=== PATIENT | female | born 1945 | race Caucasian/White ===

== ENCOUNTER 2016-08-25 23:13 | Inpatient (IN) | payer MEDICARE, BC ==
[~2016-08-25] VITALS: Ht 172.7 cm; Wt 84.4 kg
[~2016-08-25 23:13] MED LIST: ASPI-496 PO; CHOL500014 PO; DOXY100C2 PO; DOXY150T PO; EZET1TAB4 PO; FLUO20CA8 PO; FLUT1BLS INH; LOSA100T6 PO
[2016-08-25 23:49] LABS: BLOOD UREA NITROGEN 20 mg/dL (7-18)
[2016-08-26] MEDS ORDERED: ONDANSETRON ODT 4 MG ONE (00:25)
[2016-08-26] MEDS ORDERED: MAALOX/HYOSCYAMINE/LIDOCAINE 45 ML BTL ONE (00:25)
[2016-08-26] MEDS ORDERED: MAALOX/HYOSCYAMINE/LIDOCAINE 45 ML BTL PO ONE (00:30)
[2016-08-26] MEDS ORDERED: ONDANSETRON ODT 4 MG PO ONE (00:30)
[2016-08-26] MEDS ORDERED: ONDANSETRON 2MG/ML, 2ML IVPush PRN (03:00)
[2016-08-26 03:30] VITALS: BP 154/85
[2016-08-26] MEDS ORDERED: DOCUSATE CALCIUM 240 MG CAPSULE PO PRN (06:00)
[2016-08-26] MEDS ORDERED: ACETAMINOPHEN 650 MG/20.3 ML UDC PO PRN (06:00)
[2016-08-26] MEDS: ENOXAPARIN 40 MG/0.4 ML SQ SCH (06:13)
[2016-08-26 06:55] VITALS: BP 172/76
[2016-08-26] MEDS: FLUOXETINE 20 MG CAPSULE PO SCH ×2 (09:04→20:33)
[2016-08-26] MEDS: EZETIMIBE 10 MG TABLET PO SCH (09:04)
[2016-08-26] MEDS: ASPIRIN 325 MG TABLET PO SCH (09:04)
[2016-08-26] MEDS: SIMVASTATIN 20 MG TABLET PO SCH (09:05)
[2016-08-26] MEDS: SODIUM CHLORIDE FLUSH 10ML SYR IVF SCH ×2 (09:06→20:33)
[2016-08-26] MEDS: LOSARTAN 50MG TABLET PO SCH (09:07)
[2016-08-26 12:31] VITALS: BP 177/81
[2016-08-26 20:00] VITALS: BP 159/75
[2016-08-26] MEDS ORDERED: DIPHENHYDRAMINE 50 MG CAPSULE PO ONE (23:30)
[2016-08-27 02:00] VITALS: BP 160/83
[2016-08-27] MEDS: ENOXAPARIN 40 MG/0.4 ML SQ SCH (06:12)
[2016-08-27 06:37] VITALS: BP 172/89
[2016-08-27] MEDS: LOSARTAN 50MG TABLET PO SCH (09:22)
[2016-08-27] MEDS: SODIUM CHLORIDE FLUSH 10ML SYR IVF SCH ×2 (09:22→20:26)
[2016-08-27] MEDS: FLUOXETINE 20 MG CAPSULE PO SCH ×2 (09:22→20:26)
[2016-08-27] MEDS: ASPIRIN 325 MG TABLET PO SCH (09:22)
[2016-08-27] MEDS ORDERED: ASPI325T4 PO (12:23)
[2016-08-27] MEDS ORDERED: EZET1TAB5 PO (12:23)
[2016-08-27 13:05] VITALS: BP 195/99
[2016-08-27] MEDS ORDERED: OMNIPAQUE 350 MG/ML, 100ML BOTTLE ONE (15:03)
[2016-08-27 15:23] VITALS: BP 197/81
[2016-08-27] MEDS ORDERED: hydrALAzine 20 MG/ML, 1ML IV ONE (15:30)
[2016-08-27] MEDS ORDERED: CARV6.252 PO (15:39)
[2016-08-27 16:05] VITALS: BP 148/73
[2016-08-27] MEDS ORDERED: LORazepam 1MG TABLET PO ONE (17:00)
[2016-08-27 20:00] VITALS: BP 154/74
[2016-08-27] MEDS: CARVEDILOL 6.25 MG TABLET PO SCH (20:26)
[2016-08-28 02:00] VITALS: BP 146/83
[2016-08-28] MEDS: ENOXAPARIN 40 MG/0.4 ML SQ SCH (06:24)
[2016-08-28] MEDS: CARVEDILOL 6.25 MG TABLET PO SCH (06:24)
[2016-08-28 06:55] VITALS: BP 144/70
[2016-08-28] MEDS: SODIUM CHLORIDE FLUSH 10ML SYR IVF SCH (08:12)
[2016-08-28] MEDS: ASPIRIN 325 MG TABLET PO SCH (08:12)
[2016-08-28] MEDS: EZETIMIBE 10 MG TABLET PO SCH (08:13)
[2016-08-28] MEDS: LOSARTAN 50MG TABLET PO SCH (08:13)
[2016-08-28] MEDS: FLUOXETINE 20 MG CAPSULE PO SCH (08:13)
[2016-08-28] MEDS: SIMVASTATIN 20 MG TABLET PO SCH (08:13)
[2016-08-28 10:07] VITALS: BP 107/64
== END 2016-08-28 11:11 | disposition home or self-care (01) | DRG 65 ==
LOC: ED 23:29 → EDIP 08-26 02:37 → 4EST 08-26 03:22
PROVIDERS: ADMIT Psychiatry & Neurology Neurology; ATTEND Family Medicine
DX: I63.412 Cerebral infarction due to embolism of left middle cerebral artery (principal); E44.0 Moderate protein-calorie malnutrition; I10 Essential (primary) hypertension; D86.9 Sarcoidosis, unspecified; G89.29 Other chronic pain; E78.5 Hyperlipidemia, unspecified; R29.702 NIHSS score 2; Z66 Do not resuscitate; M54.2 Cervicalgia; G83.21 Monoplegia of upper limb affecting right dominant side; Z79.82 Long term (current) use of aspirin; Z87.01 Personal history of pneumonia (recurrent); Z88.2 Allergy status to sulfonamides; Z83.3 Family history of diabetes mellitus
CPT/HCPCS: 36415; 70450; 70498; 70551; 72125; 72141; 80047; 80048; 80061; 82040; 85025; 85610; 85730; 93005; 93306; 99292; J1650; Q0162; Q9967; 92523-GN; J0360

== ENCOUNTER 2016-10-11 17:19 | Emergency (ER) | payer MEDICARE, BC ==
[~2016-10-11] VITALS: Ht 172.7 cm; Wt 81.0 kg
[~2016-10-11 17:19] MED LIST changes: +ASPI325T17 PO; +CARV6.252 PO; -CHOL500014 PO; +CHOL500045 PO; +EZET1TAB30 PO; +EZET1TAB35 PO; -EZET1TAB4 PO
[2016-10-11] MEDS ORDERED: SODIUM CHLORIDE FLUSH 10ML SYR IVF ONE (18:00)
[2016-10-11 18:11] LABS: HEMATOCRIT 42.7 % (34.6-47.8); HEMOGLOBIN 14.3 g/dL (11.7-16.4); WHITE BLOOD COUNT 8.8 x10^3/uL (3.4-10)
[2016-10-11 18:25] LABS: ASPARTATE AMINO TRANSFERASE 18 U/L (15-37); BLOOD UREA NITROGEN 27 mg/dL (7-18)
[2016-10-11 18:43] LABS: IS PT STATUS REG ER OR PRE ER? YES
[2016-10-11] MEDS ORDERED: ASPIRIN 81 MG TABLET CHEW PO ONE (19:30)
[2016-10-11] MEDS ORDERED: ASPIRIN 81 MG TABLET CHEW ONE (19:32)
[2016-10-11 19:49] VITALS: BP 147/69
== END 2016-10-11 19:52 | disposition home or self-care (01) ==
LOC: ED 19:30
DX: R53.1 Weakness (principal); R07.89 Other chest pain; J45.909 Unspecified asthma, uncomplicated; I10 Essential (primary) hypertension; Z86.73 Personal history of transient ischemic attack (TIA), and cerebral infarction without residual deficits
CPT/HCPCS: 36415; 70450; 71010; 80053; 83690; 84484; 85025; 85610; 93005; 99285

== ENCOUNTER → 2016-12-15 | Outpatient (CLI) | payer MEDICARE, BC | END | disposition home or self-care (01) | LOC: CFH 13:50 | PROVIDERS: ATTEND Family Medicine | DX: N60.02 Solitary cyst of left breast (principal); N63.24 Unspecified lump in the left breast, lower inner quadrant | CPT/HCPCS: G0204 ==